=== PATIENT | female | born 1990 | race Two or more races ===

== ENCOUNTER 2021-07-06 12:41 | Outpatient (REF) | payer OTHER, SELFPAY ==
[2021-07-06 16:06] LABS: COVID-19 Test Positive (Negative)
== END 2021-07-06 12:42 | disposition home or self-care (01) ==
LOC: HO.LAB 12:41
PROVIDERS: Visit Provider Internal Medicine
DX: Z20.822 Contact with and (suspected) exposure to COVID-19 (principal)
CPT/HCPCS: 36415; 87635; C9803

== ENCOUNTER 2023-02-19 13:13 | Outpatient (REF) | payer OTHER, SELFPAY ==
[2023-02-19 13:53] LABS: MANUAL DIFF FLAG NO
[2023-02-19 14:21] LABS: Basophils Percent Auto 0.6 % (0-2); Eosinophils Absolute Auto 0.2 X10*3/uL (0.0-0.4); Eosinophils Percent Auto 3.3 % (0-4); Hematocrit 38.9 % (37.0-47.0); Hemoglobin 13.1 g/dl (12.0-16.0); Imm Gran Abs Auto 0.04 X10*3/uL (0.00-0.03); Imm Gran Pct Auto 0.6 % (0.0-0.4); Lymphocytes Percent Auto 30.5 % (20-40); Mean Corpuscular HGB Conc 33.7 g/dl (31.0-35.0); Mean Corpuscular Hemoglobin 29.6 pg (27.0-33.0); Mean Corpuscular Volume 87.8 fL (80.0-98.0); Mean Platelet Volume 10.2 fL (9.4-12.3); Monocytes Absolute Auto 0.5 X10*3/uL (0.1-1.2); Neutrophils Absolute Auto 3.9 x10*3/uL (2.0-8.3); Platelet Count 286 X10*3/uL (160-400); Red Blood Count 4.43 X10*6/uL (4.20-5.50); Red Cell Distribution Width 12.4 % (11.0-16.0); White Blood Count 6.7 X10*3/uL (4.8-10.8)
[2023-02-19 16:37] LABS: Alanine Aminotransferase 20 U/L (0-31); Albumin Level 4.2 g/dL (3.5-5.0); Alkaline Phosphatase 74 U/L (39-117); Anion Gap 13 (12-20); Aspartate Amino Transferase 14 U/L (5-31); Bilirubin Total 0.7 mg/dL (0.0-1.0); Blood Urea Nitrogen 15 mg/dL (9-16); Calcium 9.3 mg/dL (8.4-10.2); Carbon Dioxide 28 mmol/L (22-29); Chloride 103 mmol/L (96-108); Cholesterol 189 mg/dL; Estimated Glomerular Filt Rate > 60; Glucose Random 92 mg/dL (60-115); HDL Cholesterol 38 mg/dL; LDL Cholesterol Calculated 118 mg/dl; Potassium 3.9 mmol/L (3.3-5.1); Sodium 140 mmol/L (135-145); Total Protein 7.9 g/dL (6.5-8.0); Triglycerides 169 mg/dL
[2023-02-19 16:54] LABS: Thyroid Stimulating Hormone 3.15 uIU/mL (0.32-4.0)
[2023-02-19 19:04] LABS: CT PCR NOT DETECTED (Not Detect.); NG PCR NOT DETECTED (Not Detect.)
[2023-02-20 02:48] LABS: Creatinine Urine 172.33 mg/dL; Protein/Creatinine Ratio, Ur 0.06 (<0.2); Total Protein Urine Random 11 mg/dL (<12)
== END 2023-02-19 13:14 | disposition home or self-care (01) ==
LOC: HO.LAB 13:13
PROVIDERS: PCP Internal Medicine; Visit Provider Internal Medicine
DX: Z00.01 Encounter for general adult medical examination with abnormal findings (principal); I10 Essential (primary) hypertension; R63.5 Abnormal weight gain; Z20.2 Contact with and (suspected) exposure to infections with a predominantly sexual mode of transmission
CPT/HCPCS: 0353U; 80053; 80061; 84156; 84443; 85025

== ENCOUNTER 2024-08-19 07:18 | Outpatient (REF) | payer OTHER, SELFPAY ==
--- OUTSIDE RECORDS SUMMARY | 2024-08-19 07:21 | XMS_ITS | Clinical Summary ---
Author Organization [facility] Address [address] [place] [phone] Phone Care Team Providers Care Room Cleaner Name Role Phone Mayi Arroyo MD Primary Care Provider [phone] Allergies Active Allergy Reactions Criticality Noted Date Comments Penicillins Rash 06/17/2024 Medications No known medications Encounters Date Type Department Care Team Description 06/18/2024 3:57 AM EST - 06/18/2024 4:51 AM EST Emergency [facility] Emergency [address] [place] [address] Isaiah Dow MD Precordial pain (Primary Dx) Discharge Disposition: Home or Self Care from Last 3 Months Medical History Medical History Date Comments Hypertension Social History Tobacco Use Types Packs/Day Years Used Date Smoking Tobacco: Never Smokeless Tobacco: Never Tobacco Cessation:Counseling Given: Not Answered Comments Unknown Sex and Gender Information Value Date Recorded Sex Assigned at Female 06/17/2024 4:16 PM EST Legal Sex Female 1:00 PM EST Gender Identity Female 06/17/2024 4:16 PM EST Sexual Orientation Straight 06/17/2024 4: 16 PM EST Obstetrics History Last Filed Vital Signs Vital Sign Reading Time Taken Comments Blood Pressure 130/91 06/18/2024 4:20 AM EST Pulse 97 06/18/2024 4:20 AM EST Temperature 36.6 ??C (97.9 ??F) 06/18/2024 1:[address] Respiratory Rate 18 06/18/2024 4:20 AM EST Oxygen Saturation 98% 06/18/2024 4:20 AM EST Inhaled Oxygen Concentration - - Weight 99.3 kg (219 lb) 06/17/2024 3:14 PM EST Height 170.2 cm (5' 7 ) 06/17/2024 3:14 PM EST Body Mass Index 34.3 06/17/2024 3:14 PM EST Plan of Treatment Health Maintenance Due Date Last Done Comments DTaP,Tdap,and Td Vaccines (1 - Tdap) 2010 Hepatitis B Vaccines (1 of 3 - 19+ 3-dose series) 2010 Cervical Cancer Screening: P ap Smear 2012 Cholesterol Screening (Lipid Panel) 06/06/2022 Depression Screening 06/06/2022 HIV Screening 06/06/2022 Hepatitis C Screening 06/06/2022 Social Influencers of Health Screening 06/06/2022 COVID-19 Vaccine ( - 2023-2 5 season) 2024 Influenza Vaccine (#1) 2024 Hypertension/CHF/CAD Annual BMP Blood Test 06/17/2025 06/17/2024 HIB Vaccines Aged Out No longer eligi ble based on patient's age to complete this topic HPV Vaccines Aged Out No longer eligi ble based on patient's age to complete this topic Hepatitis A Vaccines Aged Out No long er eligible based on patient's age to complete this topic IPV Vaccines Aged Out No longer eligi ble based on patient's age to complete this topic MMR Vaccines Aged Out No longer eligi ble based on patient's age to complete this topic Meningococcal ACWY Vaccine Aged Out N o longer eligible based on patient's age to complete this topic Pneumococcal Vaccine: Pediat rics (0 to 5 Years) and At-Risk Patients (6 to 64 Years) Aged Out No longer eligi ble based on patient's age to complete this topic RSV Immunization Patients Un matthew 20 months Aged Out No longer eligible b ased on patient's age to complete this topic Varicella Vaccines Aged Out No longer eligible based on patient's age to complete this topic Procedures Procedure Name Priority Date/Time Associated Diagnosis Comments XR CHEST 2 VIEWS STAT 06/18/2024 3:24 AM EST POC , URINE DIAGNOSTIC STAT 06/18/2024 3:15 AM EST ECG ANNOTATED 06/18/2024 ECG 12-LEAD STAT 06/17/2024 6:00 PM EST TROPONIN I HIGH SENSITIVITY STAT 06/17/2024 5:57 PM EST CBC WITH AUTO DIFFERENTIAL STAT 06/17/2024 3:26 PM EST MAGNESIUM STAT 06/17/2024 3:26 PM EST LIPASE STAT 06/17/2024 3:26 PM EST COMPREHENSIVE METABOLIC PANEL STAT 06/17/2024 3:26 PM EST CBC AND DIFFERENTIAL STAT 06/17/2024 3:26 PM EST TROPONIN I HIGH SENSITIVITY STAT 06/17/2024 3:26 PM EST ECG 12-LEAD STAT 06/17/2024 3:06 PM EST from Last 3 Months Results * XR Chest 2 Views (06/18/2024 3:24 AM EST) Anatomical Region Laterality Modality Body Radiographic Dina ging 06/18/2024 8:26 AM EST Impressions 06/18/2024 8:27 AM EST Normal chest radiographs. -------- FINAL REPORT -------- Dictated By: Lee Fulton Dictated Date: 06/18/2024 08:26 ET Assigned Physician: Lee Fulton Reviewed and Electronically Signed By: Lee Fulton Signed Date: 06/18/2024 08:27 ET Workstation ID: [id number] Transcribed By: Self Edit Transcribed Date: 06/18/2024 08:26 ET Narrative 06/18/2024 8:27 AM EST PA and lateral views of the chest dated 06/18/2024. HISTORY: chest pain. COMPARISON: 05/17/2023. ?? FINDINGS: The heart, mediastinum, lungs, pleural spaces, and bony thorax are normal. Procedure Note Lee Fulton MD - 06/18/2024 PA and lateral views of the chest dated 06/18/2024. HISTORY: chest pain. COMPARISON: 05/17/2023. FINDINGS: The heart, mediastinum, lungs, pleural spaces, and bony thorax arenormal. IMPRESSION: Normal chest radiographs. -------- FINAL REPORT -------- Dictated By: Lee Fulton Dictated Date: 06/18/2024 08:26 ET Assigned Physician: Lee Fulton Reviewed and Electronically Signed By: Lee Fulton Signed Date: 06/18/2024 08:27 ET Workstation ID: [id number] Transcribed By: Self Edit Transcribed Date: 06/18/2024 08:26 ET Samm Tan DO IMG XR PROCEDURES Final Res ult * POC , urine manually resulted (06/18/2024 3:15 AM EST) Pathologist [facility] HCG, Ur POC Negative Negative POC hCG Int QC Pass? Yes Yes Urine Urine specimen obtained by clean catch procedure / Unknown 06/18/2024 3:15 AM EST Samm Tan DO POINT OF CARE TEST ENTER/ED IT ORDERABLES Final Result * ECG-Annotated (06/18/2024) Provider Onbase MD ECG ORDERABLES Final Result * ECG 12 lead (06/17/2024 6:00 PM EST) Only the most recent of2 resultswithin the time period is included. Pathologist [facility] Ventricular Rate ECG 100 BPM GEMUSE Atrial Rate 100 BPM GEMUSE P-R Interval 130 ms GEMUSE QRS Duration 76 ms GEMUSE Q-T Interval 354 ms GEMUSE QTc 456 ms GEMUSE P Wave [place] 30 degrees GEMUSE R [place] 29 degrees GEMUSE T [place] 25 degrees GEMUSE ECG Interpretation Normal sinus rhythm Normal ECG When compared with ECG of 17-JUN-2024 15:06, (unconfirmed) No significant change was found Confirmed by Sandi AUSTIN JAMES ([id number]) on 06/17/2024 8:14:53 PM GEMUSE 06/17/2024 6:00 PM EST 06/17/2024 8:14 PM EST us Samm Tan DO ECG ORDERABLES Final Resul t Performing Organization Address City/[facility] Co de Phone Number GEMUSE * Troponin I high sensitivity (06/17/2024 5:57 PM EST) Only the most recent of2 resultswithin the time period is included. [facility] High Sensitivity Troponin I 3 <=54 ng/L LAB CHEMISTRY METHOD 06/17/2024 6:39 PM EST [facility] Blood Venous blood specimen / Unknown Venipuncture / Unknown 06/17/2024 5:57 PM EST 06/17/2024 6:03 PM EST Narrative [facility] - 06/17/2024 6:39 PM EST High levels of biotin in samples may falsely decrease hsTroponin values. ??Use caution when interpreting hsTroponin results in patients taking biotin who exhibit renal impairment (eGFR <60) or in patients taking more than 20 mg/day of biotin. Samm Tan DO LAB BLOOD ORDERABLES Final Result Performing Organization Address [facility] Co de Phone Number [facility] [address] [place] [address], [place] [phone] * CBC auto differential (06/17/2024 3:26 PM EST) [facility] WBC 7.2 4.8 - 10.8 K/mcL LAB HEMETOLOGY METHOD 06/17/2024 3:38 PM EST [facility] RBC 4.20 3.80 - 4.80 M/mcL LAB HEMETOLOGY METHOD 06/17/2024 3:38 PM EST [facility] Hemoglobin 12.4 11.5 - 16.0 g/dL LAB HEMETOLOGY METHOD 06/17/2024 3:[address] [facility] Hematocrit 36.7 35.0 - 47.0 % LAB HEMETOLOGY METHOD 06/17/2024 3:[address] [facility] MCV 87.8 79.0 - 98.0 FL LAB HEMETOLOGY METHOD 06/17/2024 3:[address] [facility] MCH 29.7 27.0 - 32.0 pcg LAB HEMETOLOGY METHOD 06/17/2024 3:[address] [facility] MCHC 33.8 32.0 - 37.0 g/dL LAB HEMETOLOGY METHOD 06/17/2024 3:[address] [facility] RDW 11.9 11.0 - 15.0 % LAB HEMETOLOGY METHOD 06/17/2024 3:[address] [facility] Platelets 298 130 - 400 K/mcL LAB HEMETOLOGY METHOD 06/17/2024 3:[address] [facility] MPV 9.6 7.0 - 11.0 FL LAB HEMETOLOGY METHOD 06/17/2024 3:[address] [facility] NRBC 0.0 <1.0 % LAB HEMETOLOGY METHOD 06/17/2024 3:[address] [facility] NRBC Absolute 0.00 <0.10 K/mcL LAB HEMETOLOGY METHOD 06/17/2024 3:[address] [facility] Neutrophils Relative 59.2 % LAB HEMETOLOGY METHOD 06/17/2024 3:[address] [facility] Lymphocytes Relative 29.7 % LAB HEMETOLOGY METHOD 06/17/2024 3:[address] [facility] Monocytes Relative 7.4 % LAB HEMETOLOGY METHOD 06/17/2024 3:[address] [facility] Eosinophils Relative 2.5 % LAB HEMETOLOGY METHOD 06/17/2024 3:38 PM EST [facility] Basophils Relative 0.8 % LAB HEMETOLOGY METHOD 06/17/2024 3:38 PM EST [facility] Immature Granulocytes Relative 0.4 % LAB HEMETOLOGY METHOD 06/17/2024 3:[address] [facility] Neutrophils Absolute 4.25 1.50 - 7.00 K/mcL LAB HEMETOLOGY METHOD 06/17/2024 3:38 PM EST [facility] Lymphocytes Absolute 2.13 1.00 - 5.00 K/mcL LAB HEMETOLOGY METHOD 06/17/2024 3:38 PM EST [facility] Monocytes Absolute 0.53 0.20 - 1.00 K/mcL LAB HEMETOLOGY METHOD 06/17/2024 3:38 PM EST [facility] Eosinophils Absolute 0.18 0.00 - 0.50 K/mcL LAB HEMETOLOGY METHOD 06/17/2024 3:38 PM EST [facility] Basophils Absolute 0.06 0.00 - 0.20 K/mcL LAB HEMETOLOGY METHOD 06/17/2024 3:38 PM EST [facility] Immature Granulocytes Absolute 0.03 0.00 - 0.03 K/mcL LAB HEMETOLOGY METHOD 06/17/2024 3:38 PM EST [facility] Blood Venous blood specimen / Unknown Venipuncture / Unknown 06/17/2024 3:26 PM EST 06/17/2024 3:32 PM EST us Samm Tan DO LAB BLOOD ORDERABLES Final Result [facility] [address] [place] [address], * Magnesium (06/17/2024 3:26 PM EST) Magnesium 1.9 1.9 - 2.6 mg/dL LAB CHEMISTRY METHOD 06/17/2024 4:09 PM EST [facility] Blood Venous blood specimen / Unknown Venipuncture / Unknown 06/17/2024 3:26 PM EST 06/17/2024 3:32 PM EST Sammluis alberto Tan DO LAB BLOOD ORDERABLES Final Result [facility] [address] [place] [address], [place] [phone] * Lipase (06/17/2024 3:26 PM EST) Pathologist [facility] Lipase 55 13 - 75 unit/L LAB CHEMISTRY METHOD 06/17/2024 4:[address] [facility] Blood Venous blood specimen / Unknown Venipuncture / Unknown 06/17/2024 3:26 PM EST 06/17/2024 3:32 PM EST Samm Tan DO LAB BLOOD ORDERABLES Final Result Performing Organization Address City/[facility]/ZIP Co de Phone Number [facility] [address] [place] [address], [place] [phone] * (ABNORMAL) Comprehensive metabolic panel (06/17/2024 3:26 PM EST) Pathologist [facility] Sodium 138 133 - 145 mmol/L LAB CHEMISTRY METHOD 06/17/2024 4:[address] [facility] Potassium 4.0 3.5 - 5.5 mmol/L LAB CHEMISTRY METHOD 06/17/2024 4:[address] [facility] Chloride 104 96 - 110 mmol/L LAB CHEMISTRY METHOD 06/17/2024 4:[address] [facility] CO2 29 21 - 32 mmol/L LAB CHEMISTRY METHOD 06/17/2024 4:[address] [facility] Anion Gap 5 3 - 11 LAB CHEMISTRY METHOD 06/17/2024 4:[address] [facility] Glucose 106(H) 70 - 100 mg/dL LAB CHEMISTRY METHOD 06/17/2024 4:[address] [facility] BUN 10 5 - 25 mg/dL LAB CHEMISTRY METHOD 06/17/2024 4:[address] [facility] Creatinine 0.59 0.50 - 1.10 mg/dL LAB CHEMISTRY METHOD 06/17/2024 4:[address] [facility] eGFR 122 >=60 mL/min/1. 73m2 LAB CHEMISTRY METHOD 06/17/2024 4:[address] [facility] Comment:Calculation based on the??Chronic Kidney Disease Epidemiology Collaboration (CKD-EPI) equation refit??without adjustment for race. BUN/Creatinine Ratio 16.9 LAB CHEMISTRY METHOD 06/17/2024 4:[address] [facility] Calcium 9.0 8.5 - 10.5 mg/dL LAB CHEMISTRY METHOD 06/17/2024 4:[address] [facility] AST (SGOT) 12 10 - 42 unit/L LAB CHEMISTRY METHOD 06/17/2024 4:[address] [facility] ALT (SGPT) 26 10 - 60 unit/L LAB CHEMISTRY METHOD 06/17/2024 4:[address] [facility] Alkaline Phosphatase 72 42 - 121 unit/L LAB CHEMISTRY METHOD 06/17/2024 4:[address] [facility] Total Protein 7.6 6.0 - 8.0 g/dL LAB CHEMISTRY METHOD 06/17/2024 4:[address] [facility] Albumin 3.9 3.2 - 5.0 g/dL LAB CHEMISTRY METHOD 06/17/2024 4:[address] [facility] Total Bilirubin 0.8 0.0 - 1.4 mg/dL LAB CHEMISTRY METHOD 06/17/2024 4:[address] [facility] Blood Venous blood specimen / Unknown Venipuncture / Unknown 06/17/2024 3:26 PM EST 06/17/2024 3:32 PM EST us Samm Tan DO LAB BLOOD ORDERABLES Final Result [facility] [place] ([facility]) [facility] [address] [place] [address], [place] [phone] from Last 3 Months Insurance [facility] Care Teams Room Cleaner Relationship Specialty Start Date End Date Mayi Arroyo MD [address] [place] [address] [place] [phone] PCP - General Internal Medicine 06/17/24
--- OUTSIDE RECORDS SUMMARY | 2024-08-19 07:21 | XMS_ITS | Clinical Summary ---
Author Organization [facility] Address [address] [place] [phone] Phone Care Team Providers Care Boat Motor Mechanic Name Role Phone Mayi Arroyo MD Primary Care Provider [phone] Allergies Active Allergy Reactions Criticality Noted Date Comments Penicillins 04/18/2023 Medications amLODIPine (NORVASC) 2.5 MG tablet Take 1 tablet (2.5 mg total) by mouth 1 (one) time each day 90 tablet 3 11/26/2023 5 Active Active Problems Problem Noted Date Diagnosed Date Increased systolic arterial pressure 06/05/2023 Obese class I 04/18/2023 04/18/2023 Hypertension 04/18/2023 Encounters Date Type Department Care Team Description 05/28/2024 7:30 AM EST Office Visit [facility] [address] [place] [phone] Maryuri Damon ARNP Hypertension (Primary Dx) from Last 3 Months Family History Medical History Relation Comments Cancer Father Relation Status Comments Father Alive Social History Tobacco Use Types Packs/Day Years Used Date Smoking Tobacco: Never Smokeless Tobacco: Never Tobacco Cessation:Counseling Given: Not Answered Alcohol Use Standard Drinks/Week Comments Never 0 (1 standard drink = 0.6 oz pur e alcohol) Comments Unknown Sex and Gender Information Value Date Recorded Sex Assigned at Not on file Legal Sex Female 8:49 AM EDT Gender Identity Not on file Sexual Orientation Not on file Last Filed Vital Signs Vital Sign Reading Time Taken Comments Blood Pressure 122/84 05/28/2024 7:39 AM EST Pulse 89 05/28/2024 7:39 AM EST Temperature - - Respiratory Rate - - Oxygen Saturation 98% 05/28/2024 7:39 AM EST Inhaled Oxygen Concentration - - Weight 99.3 kg (219 lb) 05/28/2024 7:39 AM EST Height 170.2 cm (5' 7 ) 04/18/2023 4:00 PM EDT Body Mass Index 34.3 04/18/2023 4:00 PM EDT Plan of Treatment Upcoming Encounters Date Type Department Care Team (Late st Contact Info) Description 05/28/2025 7:30 AM EST Office Visit [facility] [address] [facility] [address] [place] [address] Maryuri Damon ARNP [address] [phone] Health Maintenance Due Date Last Done Comments Pneumococcal Vaccine: Pediat rics (0 to 5 Years) and At-Risk Patients (6 to 64 Years) (1 of 2 - PCV) 1997 Hepatitis B Vaccine (1 of 3 - 19+ 3-dose series) 04/08 Influenza Vaccine (#1) 2024 Insurance [facility] Care Teams Boat Motor Mechanic Relationship Specialty Start Date End Date Mayi Arroyo MD [address] PCP - General Internal Medicine 02/28/23
[2024-08-19 07:38] LABS: MANUAL DIFF FLAG NO
[2024-08-19 08:20] LABS: Basophils Percent Auto 0.5 % (0-2); Eosinophils Absolute Auto 0.2 X10*3/uL (0.0-0.4); Eosinophils Percent Auto 3.5 % (0-4); Hemoglobin 12.9 g/dl (12.0-16.0); Imm Gran Abs Auto 0.04 X10*3/uL (0.00-0.03); Imm Gran Pct Auto 0.6 % (0.0-0.4); Lymphocytes Absolute Auto 2.4 X10*3/uL (1.2-4.9); Lymphocytes Percent Auto 36.6 % (20-40); Mean Corpuscular HGB Conc 33.9 g/dl (31.0-35.0); Mean Corpuscular Hemoglobin 29.2 pg (27.0-33.0); Mean Platelet Volume 10.1 fL (9.4-12.3); Monocytes Absolute Auto 0.6 X10*3/uL (0.1-1.2); Monocytes Percent Auto 8.5 % (2-11); Neutrophils Absolute Auto 3.3 x10*3/uL (2.0-8.3); Neutrophils Percent Auto 50.3 % (45-73); Platelet Count 291 X10*3/uL (160-400); Red Blood Count 4.42 X10*6/uL (4.20-5.50); Red Cell Distribution Width 12.1 % (11.0-16.0); White Blood Count 6.6 X10*3/uL (4.8-10.8)
[2024-08-19 09:22] LABS: Alanine Aminotransferase 35 U/L (0-31); Albumin Level 4.1 g/dL (3.5-5.0); Anion Gap 10 (12-20); Aspartate Amino Transferase 19 U/L (5-31); Bilirubin Total 0.5 mg/dL (0.0-1.0); Blood Urea Nitrogen 11 mg/dL (9-16); Calcium 8.9 mg/dL (8.4-10.2); Carbon Dioxide 24 mmol/L (22-29); Chloride 107 mmol/L (96-108); Cholesterol 202 mg/dL (<200); Estimated Glomerular Filt Rate > 60; Glucose Random 107 mg/dL (60-115); HDL Cholesterol 48 mg/dL (>40); LDL Cholesterol Calculated 123 mg/dL (<100); Potassium 3.8 mmol/L (3.3-5.1); Sodium 137 mmol/L (135-145); Total Protein 8.1 g/dL (6.5-8.0); Triglycerides 158 mg/dL (<150)
[2024-08-19 09:37] LABS: Alkaline Phosphatase 78 U/L (39-117)
[2024-08-19 09:46] LABS: Thyroid Stimulating Hormone 0.02 uIU/mL (0.32-4.0)
== END 2024-08-19 07:19 | disposition home or self-care (01) ==
LOC: HO.LAB 07:18
PROVIDERS: PCP Internal Medicine; Visit Provider Internal Medicine
DX: Z00.00 Encounter for general adult medical examination without abnormal findings (principal); E66.9 Obesity, unspecified; I10 Essential (primary) hypertension; Z13.31 Encounter for screening for depression
CPT/HCPCS: 36415; 80053; 80061; 84443; 85025

== ENCOUNTER → 2024-09-25 10:26 | Outpatient (REF) | payer OTHER, SELFPAY ==
--- NOTE | ~2024-09-25 | NM_ITS ---
EXAMINATION: NM THYROID UPTAKE AND SCAN CLINICAL INFORMATION: Hyperthyroidism COMPARISON: None available. TECHNIQUE: Following the oral administration of 293 microcuries of I-123 sodium iodide, thyroid uptake was performed and expressed as a percentage of the administrated dose. Gamma scintillation camera images of the thyroid in the anterior and right and left anterior oblique views were obtained using a pinhole collimator following the administration of 10 mCi Tc-99m pertechnetate. FINDINGS: There is a homogeneous distribution of activity throughout both thyroid lobes. No cold defects or areas of abnormal increased uptake are identified. The uptake is 12.4% at 4 hours and 28.3% at 24 hours. NM/NM thyroid w uptake IMPRESSION: Unremarkable thyroid uptake and scan. Electronically signed by: Fred Lee MD 09/29/2024 07:29 AM EDT
--- OUTSIDE RECORDS SUMMARY | 2024-09-25 11:56 | XMS_ITS | Clinical Summary ---
Author Organization [facility] Address [address] [place] [phone] Phone Care Team Providers Care Wool Puller Name Role Phone Mayi Arroyo MD Primary Care Provider [phone] Allergies Active Allergy Reactions Criticality Noted Date Comments Penicillins Rash 06/17/2024 Medications No known medications Medical History Medical History Date Comments Hypertension [...] 36.6 ??C (97.9 ??F) 06/18/2024 1:14 AM ES T Respiratory Rate 18 06/18/2024 4:20 AM EST [...] patient's age to complete this topic Meningococcal B Vacine Aged Out No lo nger eligible based on patient's age to complete [...] Procedure Name Priority Date/Time Associated Diagnosis Comments COMPREHENSIVE METABOLIC PANEL STAT 06/17/2024 3:26 PM EST from Last 3 Months or Most Recently Relevant to Health Maintenance Results * (ABNORMAL) Comprehensive metabolic panel (06/17/2024 3:26 PM EST) Sodium 138 133 - 145 mmol/L LAB CHEMISTRY METHOD 06/17/2024 4:09 PM EST [facility] Potassium 4.0 3.5 - 5.5 mmol/L LAB CHEMISTRY METHOD 06/17/2024 4:09 PM EST [facility] Chloride 104 96 - 110 mmol/L LAB CHEMISTRY METHOD 06/17/2024 4:09 PM [facility] CO2 29 21 - 32 mmol/L LAB CHEMISTRY METHOD 06/17/2024 4:09 PM [facility] Anion Gap 5 3 - 11 LAB CHEMISTRY METHOD 06/17/2024 4:09 PM [facility] Glucose 106(H) 70 - 100 mg/dL LAB CHEMISTRY METHOD 06/17/2024 4:09 PM [facility] BUN 10 5 - 25 mg/dL LAB CHEMISTRY METHOD 06/17/2024 4:09 PM [facility] Creatinine 0.59 0.50 - 1.10 mg/dL LAB CHEMISTRY METHOD 06/17/2024 4:09 PM [facility] eGFR 122 >=60 mL/min/1. 73m2 LAB CHEMISTRY METHOD 06/17/2024 4:09 PM [facility] Comment:Calculation based on the??Chronic Kidney Disease Epidemiology Collaboration (CKD-EPI) equation refit??without adjustment for race. BUN/Creatinine Ratio 16.9 LAB CHEMISTRY METHOD 06/17/2024 4:09 PM [facility] Calcium 9.0 8.5 - 10.5 mg/dL LAB CHEMISTRY METHOD 06/17/2024 4:09 PM [facility] AST (SGOT) 12 10 - 42 unit/L LAB CHEMISTRY METHOD 06/17/2024 4:09 PM [facility] ALT (SGPT) 26 10 - 60 unit/L LAB CHEMISTRY METHOD 06/17/2024 4:09 PM [facility] Alkaline Phosphatase 72 42 - 121 unit/L LAB CHEMISTRY METHOD 06/17/2024 4:09 PM [facility] Total Protein 7.6 6.0 - 8.0 g/dL LAB CHEMISTRY METHOD 06/17/2024 4:09 PM [facility] Albumin 3.9 3.2 - 5.0 g/dL LAB CHEMISTRY METHOD 06/17/2024 4:09 PM EST [facility] Total Bilirubin 0.8 0.0 - 1.4 mg/dL LAB CHEMISTRY METHOD 06/17/2024 4:09 PM EST [facility] Blood Venous blood specimen / Unknown Venipuncture / Unknown 06/17/2024 3:26 PM EST 06/17/2024 3:32 PM EST us Samm Tan DO LAB BLOOD ORDERABLES Final Result [facility]) [facility] [address] [place] [address], from Last 3 Months or Most Recently Relevant to Health Maintenance [place] [place] [address] Care Teams Wool Puller Relationship Specialty Start Date End Date Mayi Arroyo MD [address] [place] [address] [place] [address] PCP - General Internal Medicine 06/17/24
--- OUTSIDE RECORDS SUMMARY | 2024-09-25 11:56 | XMS_ITS | Clinical Summary ---
Author Organization [facility] Address [address] [phone] Phone Care Team Providers Care Building Pressure Washer Name Role Phone Mayi Arroyo MD Primary Care Provider Allergies Active Allergy Reactions Criticality Noted Date Comments Penicillins 04/18/2023 Medications amLODIPine (NORVASC) 2.5 MG tablet Take 1 tablet (2.5 mg total) by mouth 1 (one) time each day 90 tablet 3 11/26/2023 Active Active Problems Problem Noted Date Diagnosed Date Increased systolic arterial pressure 06/05/2023 Obese class I 04/18/2023 04/18/2023 Hypertension 04/18/2023 Family History Medical History Relation Comments Cancer [...] Office Visit [facility] [address] [facility] [address] [place] [phone] DamonMaryuriBABAK [address] [facility] [address] [place] [address] Health Maintenance Due Date Last Done Comments Pneumococcal Vaccine: Pediat rics (0 to 5 Years) and At-Risk Patients (6 to 64 Years) (1 of 2 - PCV) 1997 Hepatitis B Vaccine (1 of 3 - 19+ 3-dose series) 04/08 Influenza Vaccine (#1) [address] [place] [phone] [facility] [address] [place] [phone] [facility] Care Teams Building Pressure Washer Relationship Specialty Start Date End Date Mayi Arroyo MD [facility] [address] PCP - General Internal Medicine 02/28/23
== END ==
LOC: HO.NUCMED 10:26
PROVIDERS: PCP Internal Medicine; Visit Provider Internal Medicine
DX: E05.90 Thyrotoxicosis, unspecified without thyrotoxic crisis or storm (principal)
CPT/HCPCS: 78014; A9512; A9516

== ENCOUNTER → 2024-09-25 10:30 | Outpatient (BNV) | payer OTHER, SELFPAY | PROVIDERS: PCP Internal Medicine; Visit Provider Radiology Diagnostic Radiology | DX: E05.90 Thyrotoxicosis, unspecified without thyrotoxic crisis or storm (principal) | CPT/HCPCS: 78014 ==

== ENCOUNTER 2025-03-14 10:27 | Outpatient (REF) | payer OTHER, SELFPAY ==
--- OUTSIDE RECORDS SUMMARY | 2025-03-14 10:30 | XMS_ITS | Clinical Summary ---
Author Organization [facility] Address [address] [place] [address] Phone Care Team Providers Care [employer] Drafter Name Role Phone Mayi Arroyo MD Primary Care Provider [phone] Allergies Active Allergy Reactions Criticality Noted Date Comments Penicillins Rash 06/17/2024 Medications ibuprofen (ADVIL,MOTRIN) 600 mg tablet Take 1 tablet (600 mg total) by mouth every 6 (six) hours if needed for mild pain. 30 tablet 11/18/2024 Active acetaminophen (TYLENOL) 500 mg tablet Take 2 tablets (1,000 mg total) by mouth every 6 (six) hours if needed for mild pain. 60 tablet 11/18/2024 Active methocarbamoL (ROBAXIN) 750 mg tablet Take 1 tablet (750 mg total) by mouth 3 (three) times a day if needed for muscle spasms. 20 each 11/18/2024 Active Active Problems No known active problems Medical History Medical History Date Comments Hypertension [...] Sign Reading Time Taken Comments Blood Pressure 144/80 11/18/2024 6:31 AM EDT Pulse 90 11/18/2024 6:31 AM EDT Temperature 36.6 C (97.9 F) 11/18/2024 6:31 AM EDT Respiratory Rate 18 11/18/2024 6:31 AM EDT Oxygen Saturation 97% 11/18/2024 6:31 AM EDT Inhaled Oxygen Concentration - - Weight 97.7 kg (215 lb 6.4 oz) 11/18/2024 6:31 A M EDT Height 170.2 cm (5' 7 ) 11/18/2024 6:31 AM EDT Body Mass Index 33.74 11/18/2024 6:31 AM EDT Plan of Treatment Health Maintenance Due Date Last Done Comments DTaP,Tdap,and Td Vaccines (1 - Tdap) 2010 Hepatitis B Vaccines (1 of 3 - 19+ 3-dose series) 2010 Cervical Cancer Screening: P ap Smear 2012 Cholesterol Screening (Lipid Panel) 06/06/2022 HIV Screening 06/06/2022 Hepatitis C Screening 06/06/2022 Social Influencers of Health Screening 06/06/2022 Depression Screening 07/09/2024 COVID-19 Vaccine ( - 2023-2 5 season) 2025 Influenza Vaccine (#1) 2025 04/02/2017 Hypertension/CHF/CAD Annual BMP Blood Test 06/17/2025 06/17/2024 [...] age to complete this topic Meningococcal B Vaccine Aged Out No l onger eligible based on patient's age to complete this topic Pneumococcal Vaccine: Pediat rics (0 to 5 Years) and At-Risk Patients (6 to 49 Years) Aged Out No longer eligi ble [...] mmol/L LAB CHEMISTRY METHOD 06/17/2024 4:09 PM [facility] Potassium 4.0 3.5 - 5.5 mmol/L LAB CHEMISTRY METHOD 06/17/2024 4:09 PM [facility] Chloride 104 96 - 110 mmol/L LAB CHEMISTRY METHOD 06/17/2024 4:09 PM [facility] CO2 29 21 - 32 mmol/L LAB CHEMISTRY METHOD 06/17/2024 4:09 PM [facility] Anion Gap 5 3 - 11 LAB CHEMISTRY METHOD 06/17/2024 4:09 PM [facility] Glucose 106(H) 70 - 100 mg/dL LAB CHEMISTRY METHOD 06/17/2024 4:09 PM [facility] BUN 10 5 - 25 mg/dL LAB CHEMISTRY METHOD 06/17/2024 4:09 PM [facility] Creatinine 0.59 0.50 - 1.10 mg/dL LAB CHEMISTRY METHOD 06/17/2024 4:09 PM [facility] eGFR 122 >=60 mL/min/1. 73m2 LAB CHEMISTRY METHOD 06/17/2024 4:09 PM [facility] Comment:Calculation based on the Chronic Kidney Disease Epidemiology Collaboration (CKD-EPI) equation refit without adjustment for race. BUN/Creatinine Ratio 16.9 LAB CHEMISTRY METHOD 06/17/2024 4:09 PM [facility] Calcium 9.0 8.5 - 10.5 mg/dL LAB CHEMISTRY METHOD 06/17/2024 4:09 PM [facility] AST (SGOT) 12 10 - 42 unit/L LAB CHEMISTRY METHOD 06/17/2024 4:09 PM [facility] ALT (SGPT) 26 10 - 60 unit/L LAB CHEMISTRY METHOD 06/17/2024 4:09 PM [facility] Alkaline Phosphatase 72 42 - 121 unit/L LAB CHEMISTRY METHOD 06/17/2024 4:09 PM [facility] Total Protein 7.6 6.0 - 8.0 g/dL LAB CHEMISTRY METHOD 06/17/2024 4:09 PM [facility] Albumin 3.9 3.2 - 5.0 g/dL LAB CHEMISTRY METHOD 06/17/2024 4:09 PM [facility] Total Bilirubin 0.8 0.0 - 1.4 mg/dL LAB CHEMISTRY METHOD 06/17/2024 4:09 PM [facility] Blood Venous blood specimen / Unknown Venipuncture / Unknown 06/17/2024 3:26 PM EST 06/17/2024 3:32 PM EST us Samm Tan DO LAB BLOOD ORDERABLES Final Result [facility] [address] [place] [address], from Last 3 Months or Most Recently Relevant to Health Maintenance Insurance [facility] Care Teams Solidworks Drafter Relationship Specialty Start Date End Date Mayi Arroyo MD [address] [place] [address] [place] [id number] PCP - General Internal Medicine 06/17/24
--- OUTSIDE RECORDS SUMMARY | 2025-03-14 10:30 | XMS_ITS | Clinical Summary ---
Author Organization [facility] Address [address] [address] Phone Care Team Providers Care Job Developer For [employer] Adults Name Role Phone Mayi Arroyo MD Primary [...] Office Visit [facility] [address] [facility] [address] [place] [address] Maryuri Damon [employer] [address] [facility] [address] [place] [address] Health Maintenance Due Date Last Done Comments Hepatitis B Vaccine (1 of 3 - 19+ 3-dose series) 04/08 Pneumococcal Vaccine: Peds ( 0 to 5 Years) and At-Risk Patients (6 to 49 Years) (1 of 2 - PCV) 2010 Influenza Vaccine (#1) 2025 Insurance [facility] Care Teams [employer] For [employer] Adults Relationship Specialty Start Date End Date Mayi Arroyo MD [address] [place] [address] [address] [place], [place] PCP - General Internal Medicine 02/28/23
[2025-03-14 14:34] LABS: Free T4 (Free Thyroxine) 1.03 ng/dL (0.71-1.85)
== END 2025-03-14 10:28 | disposition home or self-care (01) ==
LOC: HO.LAB 10:27
PROVIDERS: PCP Internal Medicine; Visit Provider Internal Medicine
DX: I10 Essential (primary) hypertension (principal); E05.90 Thyrotoxicosis, unspecified without thyrotoxic crisis or storm; M51.16 Intervertebral disc disorders with radiculopathy, lumbar region; M54.50 Low back pain, unspecified; R00.2 Palpitations
CPT/HCPCS: 36415; 84439; 84443; 84481